=== PATIENT | female | born 1960 | race Caucasian/White ===

== ENCOUNTER → 2017-06-05 | Outpatient (CLI) | payer BC | LOC: MC.RAD 09:55 | DX: Z12.31 Encounter for screening mammogram for malignant neoplasm of breast (principal) ==

== ENCOUNTER → 2017-07-22 | Outpatient (REF) | LOC: WSOH 10:01 | DX: Z02.89 Encounter for other administrative examinations (principal) ==

== ENCOUNTER → 2018-08-26 | Outpatient (CLI) | payer BC | LOC: MC.RAD 09:39 | DX: Z12.31 Encounter for screening mammogram for malignant neoplasm of breast (principal) ==

== ENCOUNTER 2019-09-11 06:29 | Day surgery (SDC) | payer BC ==
[~2019-09-11] VITALS: Ht 162.6 cm; Wt 57.6 kg
[2019-09-11 07:03] VITALS: BP 110/69; PULSE 86; TEMP 98.3
[2019-09-11 08:15] VITALS: BP 122/90; PULSE 85; TEMP 97.6
[2019-09-11 08:30] VITALS: BP 116/79; PULSE 79
[2019-09-11 08:45] VITALS: BP 114/81; PULSE 74
[2019-09-11 09:00] VITALS: BP 108/60; PULSE 63
--- NOTE | 2019-09-11 09:58 | NUR ---
PT RETURNED FROM POST-OP ENDO SUITE. PT ALERT AND SLEEPY. STATES, 'MY HEAD FEELS DIZZY' DENIES NAUSEA, OFFERED ZOFRAN, DENIES NEED FOR ZOFRAN OR EMESIS BASIN. O2 SATS IN THE LOW 90'S UPON ARRIVAL. .1 NARCAN GIVEN DURING THE PROCEDURE. CONTINUING TO MONITOR VS AND O2 SATS. ASKED PT , FREDDY TO COME BACK AND TALK WITH PATIENT TO KEEP HER ATTENTION AND HELP HER WAKE UP. PT REQUESTED MUFFIN AND ICE WATER. VSS AT THIS TIME. AT BEDSIDE, CALL LIGHT IN REACH. WILL CONT TO MONITOR PROGRESSION.
--- NOTE | 2019-09-11 10:09 | NUR ---
PT MORE AWAKE NOW, ALERT AND ORIENTATED. CONTINUES TO 'FEEL FUZZY' IN HER HEAD, CONTINUES TO DENY NEED FOR ZOFRAN. STATES'i TOOK SOME AT 0740, SO IM GOOD FOR NOW. PT DENIES PAIN. TOLERATING FOOD AND FLUIDS. AT BEDSIDE, THEY ARE TALKING. VSS, SATS IN NORMAL LIMITS. WILL CONT TO MONITOR PROGRESS.
--- NOTE | 2019-09-11 10:20 | NUR ---
PT ALERT AND ORIENTATED, DENIES NAUSEA, CONT TO DENY NEED FOR ZOFRAN HOWEVER STILL STATES 'HEAD FEELS FUZZY' C/O HEADACHE. VSS, SATS ARE WITHIN LIMITS. STATES, 'I NEED TO JUST GO HOME AND GET IN MY BED.' DISCHARGE INSTRUCTIONS GIVEN AND PT VOICE UNDERSTANDING. IV DC'D PER RIGHT ARM. PT TOLERATED WELL. EMESIS BASIN PROVIDED FOR RIDE HOME. PT DISCHARGE PAPERS AND BELONGINGS SENT WITH HER. PT HAS WITH HER. SHE WAS DC'D PER W/C AND TAKEN OUT THROUGH PATIENT ENTRANCE.
== END 2019-09-11 10:32 | disposition home or self-care (01) ==
LOC: SDCO 06:29
DX: Z12.11 Encounter for screening for malignant neoplasm of colon (principal); Z80.0 Family history of malignant neoplasm of digestive organs
CPT/HCPCS: J2250; J2310; J2405; J3010; J7030

== ENCOUNTER → 2019-11-10 | Outpatient (CLI) | payer BC | LOC: MC.RAD 10-05 10:30 | DX: Z12.31 Encounter for screening mammogram for malignant neoplasm of breast (principal) ==

== ENCOUNTER → 2020-11-11 | Outpatient (CLI) | payer OTHER | LOC: MC.RAD 09:29 | DX: Z12.31 Encounter for screening mammogram for malignant neoplasm of breast (principal) ==

== ENCOUNTER → 2021-02-08 | Outpatient (REF) | LOC: COL.LAB 07:59 | DX: Z20.822 Contact with and (suspected) exposure to COVID-19 (principal) ==

== ENCOUNTER → 2021-12-11 | Outpatient (CLI) | payer OTHER | LOC: MC.RAD 09:37 | DX: Z12.31 Encounter for screening mammogram for malignant neoplasm of breast (principal) ==

== ENCOUNTER 2022-10-03 06:48 | Day surgery (SDC) | payer OTHER ==
[~2022-10-03] VITALS: Ht 162.6 cm; Wt 58.4 kg
[~2022-10-03 06:48] MED LIST: PROTONIX 40MG T40 MG PO
[2022-10-03 07:01] VITALS: BP 116/67; PULSE 81; TEMP 97.6
[2022-10-03 08:15] VITALS: BP 120/96; PULSE 76; TEMP 97.5
[2022-10-03 08:30] VITALS: BP 133/92; PULSE 74
[2022-10-03 08:45] VITALS: BP 130/91; PULSE 69
--- NOTE | 2022-10-03 09:00 | NUR ---
0815-PT TO BAY 1 PER CART FROM PROCEDURE ROOM. VSL OBTAINED. CALL LIGHT WITHIN REACH. 0820-PT TOLERATING MUFFIN AND WATER. 0830-DR HOLDER IN ROOM DISCUSSING FINDINGS WITH THE PT. 0850-IV DC'D AT THIS TIME. DISCHARGE EDUCATION COMPLETED WITH PT AND HER . VERBALIZED UNDERSTANDING OF HOME AND FOLLOW UP CARE. ALL QUESTIONS ANSWERED. DISCHARGE PAPERWORK GIVEN TO PT. 0900-PT OFF UNIT PER WHEELCHAIR. PT DISCHARGED TO HOME WITH HER PER PERSONAL VEHICLE.
== END 2022-10-03 09:00 | disposition home or self-care (01) ==
LOC: SDCO 06:48
DX: K44.9 Diaphragmatic hernia without obstruction or gangrene (principal); K21.9 Gastro-esophageal reflux disease without esophagitis
CPT/HCPCS: J2704; J7120

== ENCOUNTER → 2023-12-16 | Outpatient (CLI) | payer OTHER ==
[2006-06-05 10:45] VITALS: TEMP 97.2
== END ==
LOC: MC.RAD 09:30
DX: Z12.31 Encounter for screening mammogram for malignant neoplasm of breast (principal)